=== PATIENT | female | born 2000 | race Caucasian/White ===

== ENCOUNTER 2021-03-18 10:34 | Outpatient (CLI) | payer MEDICAID ==
[2021-03-18 14:39] LABS: ABSOLUTE RETICS # AUTO 0.049 10^6/uL (0.020-0.110); BASOPHILS % (AUTO) 0.8 %; EOSINOPHILS # (AUTO) 0.1 10^3/uL (0.0-0.7); EOSINOPHILS % (AUTO) 2.3 %; HCT - HEMATOCRIT 41.3 % (37.0-47.0); HGB - HEMOGLOBIN 13.1 g/dL (12.0-16.0); LYMPHOCYTES # (AUTO) 1.5 10^3/uL (1.5-3.5); LYMPHOCYTES % (AUTO) 30.6 %; MEAN CORPUSCULAR HEMOGLOBIN 29.9 pg (27.0-31.0); MEAN CORPUSCULAR HGB CONC 31.7 g/dL (32.0-36.0); MEAN CORPUSCULAR VOLUME 94.3 fL (81.0-99.0); MEAN PLATELET VOLUME 11.4 fL (7.9-10.8); MONOCYTES # (AUTO) 0.4 10^3/uL (0.0-1.0); MONOCYTES % (AUTO) 7.9 %; NEUTROPHILS # (AUTO) 2.8 10^3/uL (1.5-6.6); NEUTROPHILS % (AUTO) 58.2 %; PLT - PLATELET COUNT 230 10^3/uL (130-450); RED BLOOD COUNT 4.38 10^6/uL (4.20-5.40); RED CELL DISTRIBUTION WIDTH 12.9 % (12.0-15.0); RETICULOCYTE COUNT % (AUTO) 1.11 % (0.5-2.3); WHITE BLOOD COUNT 4.8 x10^3/uL (4.8-10.8)
[2021-03-18 16:00] LABS: ALBUMIN 4.7 g/dL (3.2-5.5); ALBUMIN/GLOBULIN RATIO 1.6 (1.0-2.2); BILIRUBIN,TOTAL 1.1 mg/dL (0.2-1.0); CALCIUM 9.3 mg/dL (8.5-10.3); CREATININE 0.7 mg/dL (0.4-1.0); POTASSIUM 3.9 mmol/L (3.5-5.0); TOTAL PROTEIN 7.6 g/dL (6.7-8.2)
[2021-03-18 16:06] LABS: THYROID STIMULATING HORMONE 1.43 uIU/mL (0.34-5.60)
[2021-03-18 16:13] LABS: FERRITIN 13.3 ng/mL (11.0-306.8)
[2021-03-18 16:17] LABS: FOLATE 11.13 ng/mL (5.90 - >24.8)
== END 2021-03-18 10:35 | disposition home or self-care (01) ==
LOC: LAB.S 10:34
PROVIDERS: ATTEND Registered Nurse
DX: Z86.2 Personal history of diseases of the blood and blood-forming organs and certain disorders involving the immune mechanism (principal)
CPT/HCPCS: 36415; 80053; 82607; 82728; 82746; 83540; 84443; 84466; 85025; 85045

== ENCOUNTER 2021-09-25 15:45 | Outpatient (CLI) | payer MEDICAID ==
--- NOTE | 2021-09-25 16:35 | SLEEP CARE CONSULTATION ---
Information from patient questionnaire entered by Qi Love MA. I have reviewed and concur with the information entered by Qi Love MA. This document represents the service I personally performed and the decisions made by , Sofía Suggs ARNP. History of Present Illness Service Date and Time: 09/25/2021 1545 Reason for Visit: New patient (ONSET 05/2009, ) Chief Complaint: reports: Unrefreshed sleep, Snoring (as a child, stopped after tonsillectomy), Excessive daytime sleepiness, Fatigue Date of Onset: 2010 Usual bedtime: 1030 PM Time it takes to fall asleep: minutes Snores at night: No (sleeps alone; previous partners did not notice snoring or pauses) Observed to quit breathing while asleep: No Sleeps alone due to snoring: No Number of times waking at night: 2-3 avg; sometimes more; mostly just to turn over and falls back to sleep Reasons for waking at night: reports: Pain, Bathroom. denies: Choking, Snoring, Gasping for air Toss, Turn, or Twitch while sleeping: Yes Recalls having dreams: Yes Usually gets out of bed at: [id number] Feels refreshed in the morning: No Morning headache: No Sleepy or fatigued during the day: Yes (can't stop yawning when at computer at work) Ever fallen asleep while driving: Yes (drowsy driving, no accidents) Takes day naps: No Dreams during day naps: Yes Prior sleep studies: Yes Year and Where: 2011 in [place], [place] Type of Sleep Study: Polysomnography Additional HPI information: I had the pleasure of seeing COOPER ADKINS today regarding the possibility of her having a sleep disorder. Her current complaints are excessive daytime sleepiness and fatigue. She states she is tired and has been for a long time. She has had her iron and blood levels check and are normal. She is dealing with some mental health issues that seem to be related to her fatigue. She states she feels like she sleeps well but she does not wake up feeling rested. She "does not want to wake up". She is dealing with depression and is seeing a psychiatrist. She does not know if she snores but no partner has told her she does. She did snore as a child and had a sleep study when she was 10-11 years old, she was told she had sleep apnea and had a tonsillectomy. She stopped snoring as much after the surgery. Her father and maternal grandmother both have sleep apnea and use a PAP machine. - Parasomnia Symptoms Ever been unable to move upon waking from sleep: No Walks in sleep: No Talks in sleep: Yes (rarely) Ever acted out dreams in sleep: Yes (when a kid; doesn't happen now) Ever felt weak in the knees when startled or emotional: No Bothered by creepy, crawly, restless sensations in legs: No Problems with memory or concentration: Yes (mostly concentration) Subjective Initial [place] Sleepiness Scale score: 14 (in 2021) Past Medical History Past Medical History: reports: Depression, Attention deficit, Other (tons illectomy) Social History The patient's occupation is a UNEMPLOYED. Patient is Single and lives in . Have you smoked in the past 12 months: Yes Cigarettes per day (20/pack): 4 Years of smokin Quit date: September- November 2020 Smoking Pack Years: 0.8 Alcohol use: Yes Alcohol amount and frequency: 1 - 3 X week Caffeine use: Yes Caffeine amount and frequency: few times YEARLY Family History Family history of sleep disordered breathing: Yes Family Hx Sleep Apnea: Father: Snoring, Sleep apnea - Treated, Grandparent: Snoring, Sleep apnea - Treated Allergies and Home Medications Drug allergies reviewed: Yes (NKDA) Home medication list reviewed: Yes Allergy and home medication list: Medications: Titrating off Bupropion and Buspirone Started yesterday - Adderall Lexapro, not started yet, picking up later today Review of Systems Weight loss over past 5 years: losing weight from a digestive issue Cardiovascular: denies: high blood pressure Gastrointestinal: reports: nausea, other (no appetite) Urinary: reports: urgency Neurological: denies: headaches, head trauma Psychiatric: reports: depression Ear/Nose/Throat: reports: tonsillectomy. denies: injury to nose, wisdom teeth removed Endocrine: denies: thyroid disease Musculoskeletal: reports: neck pain Immunologic: denies: allergies to food or environment Physical Exam Vital signs obtained and entered by: You LOVE CMA AAIDALMIS Blood Pressure: 148/97 (PULSE 80, RESP 16, RIGHT, ) Cuff size: wrist Heart Rate: 61 O2 Saturation: 97 (PAPER MASK) Height: 5 ft 8 in Weight: 116 lb Weight change since last visit: LOST WEIGHT, DIGESTION ISSUES, PCP WILL SEE HER, Body Mass Index: 17.6 BMI Classification: Underweight Mouth and throat: normal Soft palate: normal Hard palate: normal Uvula: normal Uvula visualization: 100% Mallampati Class I Tongue: normal in size Tonsils: absent bilaterally Neck: normal w/o lymphadenopathy or thyromegaly Heart: regular rate and rhythm Lungs: clear bilaterally Impression and Plan 1. Suspected Obstructive Sleep Apnea-Hypopnea Syndrome, as previously diagnosed and as still suggested by a history of possible snoring, morning headache, unrefreshed sleep, cognitive impairment, and excessive daytime sleepiness. Narrow oropharynx and obesity are common predisposing factors for obstructive sleep apnea-hypopnea syndrome. I recommend proceeding to polysomnography to confirm the diagnosis and to assess severity. If the patient has significant sleep disordered breathing, a manual CPAP titration study will also be performed to find the optimal treatment pressure. I informed the patient of what the sleep studies involve and after some discussion, obtained agreement to proceed. The pathophysiology of obstructive sleep apnea-hypopnea syndrome was discussed with the patient and health risks of cardiovascular and cerebrovascular disease if not treated. Risks of drowsy driving discussed in detail and patient advised to avoid long distance driving and to dust puller at the first sign of drowsiness. Patient agreed to plan. * Schedule polysomnography * Avoid long distance driving or driving when feeling sleepy. * Avoid alcohol, sedative and muscle relaxant around bedtime. * Review instructions provided by trained office staff on how to prepare for the sleep study. * Return for follow-up after sleep study completed. Visit Type: In Office Time Spent with Patient (minutes): 32 Provider Statement: I spent 100% of the Face to Face Visit with the patient with greater than 50% spent counseling the patient and coordination of care.
[2021-09-25 16:37] VITALS: BP 148/97
== END 2021-09-25 15:46 | disposition home or self-care (01) ==
LOC: SC 15:45
PROVIDERS: ATTEND Nurse Practitioner Family
DX: R53.83 Other fatigue (principal); R06.83 Snoring; G47.8 Other sleep disorders; F32.A Depression, unspecified
CPT/HCPCS: 99203; 99212

== ENCOUNTER 2021-10-22 19:31 | Outpatient (CLI) | payer MEDICAID | END 2021-10-22 19:32 | disposition home or self-care (01) | LOC: SC 19:31 | PROVIDERS: ATTEND Nurse Practitioner Family | DX: R53.83 Other fatigue (principal); R06.83 Snoring; G47.8 Other sleep disorders | CPT/HCPCS: 95810 ==

== ENCOUNTER 2021-11-20 15:35 | Outpatient (CLI) | payer MEDICAID ==
[2021-11-20 16:03] VITALS: BP 129/96
--- NOTE | 2021-11-20 16:03 | SLEEP CARE CONSULTATION ---
Information from patient questionnaire entered by Qi Love MA. I have reviewed and concur with the information entered by Qi Love MA. This document represents the service I personally performed and the decisions made by , Sofía Suggs ARNP. History of Present Illness Service Date and Time: 11/20/2021 1535 Initial [place] Sleepiness Scale score: 14 (in 2021) Current [place] Sleepiness Scale score: 12 (11/20/2021) Additional HPI information: COOPER ADKINS returns for follow up and results of the recently performed polysomnography. The patient was informed of the following findings: No significant sleep disordered breathing with an average AHI of 0.6 and sherine oxygen saturation of 92%. I explained the pathophysiology behind obstructive sleep apnea. Patient does not have sleep apnea and was advised how weight gain could increase the risk of developing sleep apnea in the future. Patient has moderate snoring. Snoring can be reduced by weight loss. Weight loss is best achieved with diet consult. Patient instructed to contact PCP for referral. Snoring can also be treated with an oral appliance from a dentist. Advised to check insurance coverage. In addition, an ENT evaluation can be do to see if other treatment is indicated. Patient counseled not drink alcohol less than 4 hours before bedtime as it can increase snoring and apnea. Patient was cautioned about risks of drowsy driving until sleepiness symptoms resolve. Patient denies drowsy driving. Sleep Study - Results Type of Sleep Study: Polysomnography (F/U POLY, 10/22/2021 [facility], [place],) Prior sleep studies: Yes Year and Where: 2011 in [place], [place] Polysomnography/Home Sleep Study results: IMPRESSION: The quality of the study is good. 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 The sleep architecture was relatively normal considering the first-night effect. Respiratory monitoring showed no significant sleep disordered breathing (AHI = 0.6) or hypoxia (sherine oxygen saturation of 92%). The patient slept adequately in supine position (supine AHI = 0.8; non-supine = 0.52). Snore was moderate in intensity. There was no significant periodic leg movement of sleep. Cardiac rhythm was normal sinus rhythm without significant arrhythmia. No abnormal behavior (parasomnia) observed during the night. Allergies and Home Medications Home medication list reviewed: Yes (Adderall (instant release) 10 mg 3 x a day) Allergy and home medication list: ADDERALL 10 MG 3 X OD Review of Systems Review of systems same as previous: Yes (no changes) Physical Exam Vital signs obtained and entered by: TITO MCDONALD Blood Pressure: 129/96 (RESP 16, PULSE 71, RIGHT) Heart Rate: 70 O2 Saturation: 98 Height: 5 ft 8 in Weight: 126 lb Weight change since last visit: MAINTAIN WEIGHT Body Mass Index: 19.1 BMI Classification: Healthy weight Impression and Plan Snoring but no significant sleep disordered breathing. Patient advised that often weight loss will reduce snoring as well as apnea risk. An oral appliance can also be used for snoring. This would require a dental consultation. Patient cautioned not to use other online appliances as can cause bite issues. A list of accredited dentists in [facility] and one local dentist who makes oral appliances is available in office. Patient is advised to check if insurance will cover. An ENT consult can also be helpful to determine if any other treatment is an option. * Maintain healthy weight * Avoid alcohol consumption near bedtime * Return as needed for follow up. Counseling Topics: Weight control Visit Type: In Office Time Spent with Patient (minutes): 14 Provider Statement: I spent 100% of the Face to Face Visit with the patient with greater than 50% spent counseling the patient and coordination of care.
== END 2021-11-20 15:36 | disposition home or self-care (01) ==
LOC: SC 15:35
PROVIDERS: ATTEND Nurse Practitioner Family
DX: R06.83 Snoring (principal)
CPT/HCPCS: 99212

== ENCOUNTER 2022-04-30 08:00 | Outpatient (CLI) | payer MEDICAID ==
[2022-05-01 00:10] LABS: CHLAMYDIA TRACHOMATIS DNA NEGATIVE (NEGATIVE); NEISSERIA GONORRHOEAE DNA NEGATIVE (NEGATIVE); TRICHOMONAS VAGINALIS DNA NEGATIVE (NEGATIVE)
== END 2022-04-30 23:59 | disposition home or self-care (01) ==
LOC: LAB 08:00
PROVIDERS: ATTEND Registered Nurse
DX: Z72.51 High risk heterosexual behavior (principal)
CPT/HCPCS: 87491; 87591; 87661